=== PATIENT | female | born 1950 | race Caucasian/White ===

== ENCOUNTER 2017-02-14 20:37 | Emergency (ER) | payer OTHER ==
[~2017-02-14] VITALS: Ht 149.9 cm; Wt 59.0 kg
[~2017-02-14 20:37] MED LIST: IBUPROFEN 600600 M1 PO; NORCO 5-325 TA1 EACH PO; PROTONIX 20 MG20 M1
[2017-02-14] MEDS ORDERED: HYDROCODONE-AP1 EAC6 PO (22:07)
[2017-02-14 22:25] VITALS: BP 117/73
== END 2017-02-14 22:26 | disposition home or self-care (01) ==
LOC: ER 20:37
DX: S81.811A Laceration without foreign body, right lower leg, initial encounter (principal); S20.211A Contusion of right front wall of thorax, initial encounter; M81.0 Age-related osteoporosis without current pathological fracture; Z90.89 Acquired absence of other organs; Z90.710 Acquired absence of both cervix and uterus; Z88.2 Allergy status to sulfonamides; W01.0XXA Fall on same level from slipping, tripping and stumbling without subsequent striking against object, initial encounter; Y93.89 Activity, other specified; Y92.480 Sidewalk as the place of occurrence of the external cause; Y99.8 Other external cause status